=== PATIENT | female | born 1940 | race Caucasian/White ===

== ENCOUNTER → 2018-03-18 | Outpatient (CLI) | payer OTHER ==
[~2018-03-18] MED LIST: ACETAMINOPHEN325 M1 PO; ALLERGY10 M2 PO; ASPIRIN81 M2 PO; CARVEDILOL3.125 MG PO; DILTIAZEM ER120 M1 PO; DYAZIDE 37.5-21 EACH PO; FERREX-150 PLU150 MG PO; FISH OIL 1,2001 EAC4 PO; GLUCOSAMINE CH1 EAC8 PO; HYDROCODON-ACE1 EAC7 PO; KLOR-CON 10 ER10 MEQ PO; LIPITOR40 MG PO; MULTIVITAMINS1 EAC7 PO; PACERONE 200 M200 M1 PO; PERCOCET 5-3251 EACH PO; PLAVIX 75 MG TA75 MG PO; PRADAXA150 MG PO; TOPROL XL50 MG PO
== END ==
LOC: RAD 09:30
DX: J98.4 Other disorders of lung (principal); I10 Essential (primary) hypertension; I48.0 Paroxysmal atrial fibrillation

== ENCOUNTER → 2019-03-15 | Outpatient (CLI) | payer OTHER | LOC: RAD 12:19 | DX: I11.9 Hypertensive heart disease without heart failure (principal); R09.89 Other specified symptoms and signs involving the circulatory and respiratory systems; J98.4 Other disorders of lung; Z88.8 Allergy status to other drugs, medicaments and biological substances ==

== ENCOUNTER → 2020-03-20 | Outpatient (CLI) | payer OTHER | LOC: RAD 08:59 | PROVIDERS: ATTEND Internal Medicine | DX: I51.7 Cardiomegaly (principal) ==